=== PATIENT | female | born 1970 | race Native Hawaiian/Other Pacific Islander ===

== ENCOUNTER 2018-05-11 01:15 | Emergency (ER) | payer OTHER ==
[2018-05-11 01:35] VITALS: RESP 16; TEMP 97.5; O2SAT 100
[2018-05-11] MEDS ORDERED: Lidocaine/Epi 1% 1:100000 20 ML IJ ONE (01:50)
[2018-05-11] MEDS ORDERED: Lidocaine 1% Inj (20ml) ONE (01:53)
[2018-05-11 02:50] VITALS: BP 130/80; PULSE 70
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
== END 2018-05-11 06:57 | disposition home or self-care (01) ==
LOC: H.ER 01:15
DX: S01.01XA Laceration without foreign body of scalp, initial encounter (principal); Y04.0XXA Assault by unarmed brawl or fight, initial encounter; S09.90XA Unspecified injury of head, initial encounter